=== PATIENT | male | born 1940 | race Two or more races ===

== ENCOUNTER 2020-01-26 12:26 | Emergency (ER) | payer MEDICAID, OTHER ==
[~2020-01-26] VITALS: Ht 175.3 cm; Wt 90.7 kg
[2020-01-26] MEDS ORDERED: EPINEPHrine HCL 1 MG/10 ML SYRG IV ONE (12:27)
[2020-01-26] MEDS ORDERED: SODIUM BICARBONATE 8.4% INJ 50ML SYRINGE IV ONE (12:27)
[2020-01-26] MEDS ORDERED: DEXTROSE (50%) 50ML SYRG IV ONE (12:27)
[2020-01-26] MEDS ORDERED: SODIUM BICARBONATE 8.4% INJ 50ML SYRINGE ONE ×2 (12:33)
== END 2020-01-26 14:54 | disposition expired ==
LOC: ER 12:26
DX: I46.9 Cardiac arrest, cause unspecified (principal); J96.90 Respiratory failure, unspecified, unspecified whether with hypoxia or hypercapnia; R41.82 Altered mental status, unspecified; I10 Essential (primary) hypertension
CPT/HCPCS: 92950; 99285; J0171; J7042